=== PATIENT | female | born 1945 | race Caucasian/White ===

== ENCOUNTER 2017-03-19 11:00 | Inpatient (IN) | payer MEDICARE, BC ==
[2017-03-19] MEDS ORDERED: Acetaminophen 325 MG Tab PO PRN (11:50)
[2017-03-19] MEDS ORDERED: Sodium Chloride 0.9% 1,000 ML IV SCH (12:00)
[2017-03-19] MEDS: cefTRIAXone 2 GM Vial IVPUSH SCH (12:36)
[2017-03-19] MEDS: predniSONE 20 MG Tab PO SCH (12:36)
[2017-03-19 12:45] LABS: CHLORIDE,CL 99 mmol/L (98-107); SODIUM,NA 137 mmol/L (136-145)
--- NOTE | 2017-03-19 13:34 | PCM.HP ---
H&P History of Present Illness - General Date of Service: 03/19/17 Admit Problem/Dx: Admission Diagnosis/Problem Admission Diagnosis/Problem Pneumonia Source of Information: Patient History Limitations: Reports: No Limitations - History of Present Illness Initial Comments - Free Text/Narative: Mrs. Paz is a 71 yo female with PMH of only polio who presented for evaluation of 2 weeks of a cough productive of thick yellow sputum. Over the past 24-48 hours, she developed more generalized weakness, malaise, and a subjective fever. She did not check her temperature at home but it was measured at 100.8 in clinic yesterday. She never had any URI symptoms. She did have some chest pain but only with coughing and that actually seems better today. She has not really had any shortness of breath. I had seen her in clinic yesterday and started her on azithromycin after given her a dose of ceftriaxone in clinic. Despite this as well as OTC cares, she does not really feel any better today. Her daughter states that the patient had a "terrible night" and was coughing consistently. It also seemed at times that she was coughing so much that it was hard to catch her breath. In clinic today, her oxygen saturations were in the 86 -87% range; therefore, hospital admission was recommended. She has no history of lung disease with the exception of having polio. - Related Data Allergies/Adverse Reactions: Allergies Allergy/AdvReac Type Severity Reaction Status Date / Time No Known Allergies Allergy Verified 03/19/17 11:31 Past Medical History Gastrointestinal History: Reports: GERD - Past Surgical History HEENT Surgical History: Reports: Tonsillectomy Female Surgical History: Reports: Tubal Ligation Social & Family History - Family History Oncologic: Reports: Other (See Below) (unknown primary) - Tobacco Use Smoking Status *Q: Never Smoker Second Hand Smoke Exposure: No - Caffeine Use Caffeine Use: Reports: Coffee - Alcohol Use Alcohol Use History: No Alcohol Use in Last Twelve Months: No - Recreational Drug Use Recreational Drug Use: No - Living Situation & Occupation Living situation: Reports: , with Family (daughter) Occupation: Retired H&P Review of Systems - Review of Systems: Review Of Systems: See Below General: Reports: Fever, Malaise, Weakness HEENT: Reports: No Symptoms Pulmonary: Reports: Wheezing, Cough. Denies: Shortness of Breath Cardiovascular: Reports: No Symptoms Gastrointestinal: Reports: No Symptoms Genitourinary: Reports: No Symptoms Musculoskeletal: Reports: No Symptoms Skin: Reports: No Symptoms Neurological: Reports: No Symptoms Exam - Exam Exam: See Below - Vital Signs Vital Signs: Last Vital Signs Temp 36.3 C 03/19/17 11:16 Pulse 90 03/19/17 11:16 Resp 22 H 03/19/17 11:16 BP 131/58 L 03/19/17 11:16 Pulse Ox 92 L 03/19/17 12:52 Weight: 82.917 kg - Exam General: Alert, Oriented (but slow to answer questions correctly), Cooperative HEENT: Conjunctiva Clear, Mucosa Moist & [place], Posterior Pharynx Clear, Pupils Equal, Pupils Reactive, TMs Clear Neck: Supple, Trachea Midline. No: Lymphadenopathy, Thyromegaly Lungs: Crackles (RLL), Wheezing (in the upper lung calix bilaterally) Cardiovascular: Regular Rate, Regular Rhythm, Normal S1, Normal S2 GI/Abdominal Exam: Normal Bowel Sounds, Soft, Non-Tender, No Organomegaly, No Distention, No Mass Extremities: Normal Inspection, No Pedal Edema Peripheral Pulses: 2+: Radial (L), Radial (R), Dorsalis Pedis (L), Dorsalis Pedis (R) Skin: Warm, Dry, Intact - Patient Data Lab Results Last 24 hrs: Laboratory Results - last 24 hr 03/19/17 03/19/17 Range/Units 12:05 12:05 WBC 8.1 (4.0-10.0) x10^3/uL RBC 4.91 (4.00-5.50) x10^6/uL Hgb 13.8 (12.0-16.0) g/dL Hct 40.5 (33.0-47.0) % MCV 82.5 (78.0-93.0) fL MCH 28.1 (26.0-32.0) pg MCHC 34.1 (32.0-36.0) g/dL RDW Coeff of Kenneth 14.1 (10.0-15.0) % Plt Count 181 (130-400) x10^3/uL Neut % (Auto) 76.1 (50.0-80.0) % Lymph % (Auto) 15.8 L (25.0-50.0) % [place] % (Auto) 7.6 (2.0-11.0) % Eos % (Auto) 0.4 (0.0-4.0) % Baso % (Auto) 0.1 L (0.2-1.2) % Sodium 137 (136-145) mmol/L Potassium 3.3 L (3.5-5.1) mmol/L Chloride 99 (98-107) mmol/L Carbon Dioxide 29 (21-32) mmol/L BUN 11 (7-18) mg/dL Creatinine 0.9 (0.55-1.02) mg/dL Est Cr Clr Drug Dosing 48.07 mL/min Estimated GFR (MDRD) > 60 Glucose 113 H (74-106) mg/dL Calcium 8.4 L (8.5-10.1) mg/dL C-Reactive Protein 26.4 H (<=0.9) mg/dL Result Diagrams: 03/19/17 12:05 03/19/17 12:05 [place] Results Last 24 hrs: Microbiology 03/19/17 12:45 Anaerobic Blood Culture - Final Blood - Venous - Lab Draw *Q Meaningful Use (ADM) - VTE *Q VTE Criteria *Q: - Stroke *Q Stroke Criteria *Q: - AMI *Q AMI Criteria *Q: - Problem List (1) Community acquired pneumonia SNOMED Code(s): 504159293 ICD Code: J18.9 - PNEUMONIA, UNSPECIFIED ORGANISM Status: Acute Current Visit: Yes Problem Details: - Diagnosis of CAP based on symptoms, crackles on lung exam, and CXR showing RLL infiltrate yesterday. - She likely has not truly failed outpatient therapy but has not been on antibiotics long enough to take effect. - Therefore, will continue ceftriaxone 1 gram dialy and azithromycin 250 mg daily. Anticipate patient will be dismissed home on cefdinir and azithromycin vs. azithromycin monotherapy. - Patient does not meet sepsis criteria. - Labs obtained on admission are within acceptable limits. - Blood cultures pending. - Continuous pulse oximetry with oxygen PRN saturations <88%. (2) Wheezing SNOMED Code(s): 57591639 ICD Code: R06.2 - WHEEZING Status: Acute Current Visit: Yes Problem Details: - Will continue DuoNebs q4 hours since this helped with her symptoms while she was in clinic. - Will also do 5 day prednisone burst as well. - May need to consider outpatient PFT's if she has recurrent wheezing illnesses. Problem List Initiated/Reviewed/Updated: Yes Orders Last 24hrs: Active Orders 24 hr Category Date Time Status Patient Status [ADT] Routine ADT 03/19/17 11:09 Active Notify Provider Vital Signs [RC] ASDIRECTED Care 03/19/17 11:51 Ordered Oxygen Therapy [RC] PRN Care 03/19/17 11:50 Ordered Pulse Oximetry [RC] CONTINUOUS Care 03/19/17 11:50 Ordered RT Aerosol Therapy [RC] ASDIRECTED Care 03/19/17 11:53 Ordered Up With Assistance [RC] ASDIRECTED Care 03/19/17 11:50 Ordered VTE/DVT Education [RC] PER UNIT ROUTINE Care 03/19/17 11:50 Ordered Vital Signs [RC] Q4H Care 03/19/17 11:50 Ordered Regular Diet [DIET] Diet 03/19/17 Lunch Ordered CULTURE BLOOD [BC] Stat Lab 03/19/17 11:49 Ordered CULTURE BLOOD [BC] Stat Lab 03/19/17 11:49 Ordered Acetaminophen [Tylenol] Med 03/19/17 11:50 Ordered 650 mg PO Q4H PRN Albuterol/Ipratropium [DuoNeb 3.0-0.5 MG/3 ML] Med 03/19/17 15:00 Ordered 3 ml NEB Q4HRRT Azithromycin [Zithromax] Med 03/20/17 08:00 Ordered 250 mg PO DAILY Enoxaparin [Lovenox] Med 03/20/17 08:00 Ordered 40 mg SUBCUT DAILY Sodium Chloride 0.9% @ 100 MLS/HR(1000ml) Med 03/19/17 12:00 Ordered Sodium Chloride 0.9% [Normal Saline] 1,000 ml IV ASDIRECTED cefTRIAXone [Rocephin] Med 03/19/17 12:00 Ordered 1 gm IVPUSH Q24H predniSONE Med 03/19/17 12:00 Ordered 40 mg PO WITHBREAKFAST Blood Culture x2 Reflex Set [OM.PC] Stat Oth 03/19/17 11:46 Ordered Resuscitation Status Routine Resus Stat 03/19/17 11:50 Ordered Medication Orders Acetaminophen (Tylenol) 650 mg PO Q4H PRN PRN Reason: Pain (Mild 1-3)/fever Albuterol/Ipratropium (Duoneb 3.0-0.5 Mg/3 Ml) 3 ml NEB Q4HRRT ON [facility] OF [facility] Azithromycin (Zithromax) 250 mg PO DAILY ON [facility] Ceftriaxone Sodium (Rocephin) 2 gm IVPUSH Q24H ON [facility] OF [facility] Last Admin: 03/19/17 12:36 Dose: 2 gm Enoxaparin Sodium (Lovenox) 40 mg SUBCUT DAILY ON [facility] OF [facility] Sodium Chloride (Normal Saline) 1,000 mls @ 100 mls/hr IV ASDIRECTED ON [facility] OF [facility] Last Admin: 03/19/17 12:37 Dose: 100 mls/hr Prednisone (Prednisone) 40 mg PO WITHBREAKFAST ON [facility] OF [facility] Last Admin: 03/19/17 12:36 Dose: 40 mg Assessment/Plan Comment:: 71 yo female admitted with hypoxia secondary to community acquired pneumonia. See details under problems above. She will be treated with ceftriaxone and azithromycin as well as DuoNebs and prednisone. Oxygen PRN. Patient wishes to be full code. Patient meets inpatient criteria due to hypoxia despite outpatient therapy but will also likely spend 2 midnights in the hospital. Lovenox for VTE prophylaxis.
[2017-03-19] MEDS: Albuterol/Ipratropium 3.0-0.5 MG/3 ML Neb Soln NEB SCH ×3 (14:42→22:06)
[2017-03-20] MEDS: Albuterol/Ipratropium 3.0-0.5 MG/3 ML Neb Soln NEB SCH ×6 (03:27→23:08)
[2017-03-20 07:15] LABS: CHLORIDE,CL 105 mmol/L (98-107); SODIUM,NA 142 mmol/L (136-145)
[2017-03-20] MEDS: predniSONE 20 MG Tab PO SCH (08:04)
[2017-03-20] MEDS: Enoxaparin 40 MG/0.4 ML Syringe SUBCUT SCH ×2 (08:04→08:07)
[2017-03-20] MEDS: Azithromycin 250 MG Tab PO SCH (08:04)
--- NOTE | 2017-03-20 10:05 | PCM.PN ---
- General Info Date of Service: 03/20/17 Subjective Update: Patient states she feels "great" this morning. Slept better overnight. Cough persists but is improving. Does believe she had a fever overnight. No chest pain or shortness of breath. She is wondering if she can go home today. Nursing staff are concerned about this as she did require oxygen all night. Patient does still feel weak. - Review of Systems General: Reports: Fever, Weakness HEENT: Reports: No Symptoms Pulmonary: Reports: Cough Cardiovascular: Reports: No Symptoms Gastrointestinal: Reports: No Symptoms Genitourinary: Reports: No Symptoms Musculoskeletal: Reports: No Symptoms Skin: Reports: No Symptoms - Patient Data Vitals - Most Recent: Last Vital Signs Temp 35.8 C 03/20/17 06:00 Pulse 74 03/20/17 06:00 Resp 14 03/20/17 06:00 BP 117/39 L 03/20/17 06:00 Pulse Ox 91 L 03/20/17 09:09 Weight - Most Recent: 82.917 kg I&O - Last 24 Hours: Intake & Output 03/19/17 03/20/17 03/20/17 22:59 06:59 14:59 Intake Total 938 427 420 Output Total 350 750 Balance 588 -323 420 Lab Results Last 24 Hours: Laboratory Results - last 24 hr 03/19/17 03/19/17 03/20/17 Range/Units 12:05 12:05 06:30 WBC 8.1 8.2 (4.0-10.0) x10^3/uL RBC 4.91 4.59 (4.00-5.50) x10^6/uL Hgb 13.8 12.9 (12.0-16.0) g/dL Hct 40.5 38.0 (33.0-47.0) % MCV 82.5 82.8 (78.0-93.0) fL MCH 28.1 28.1 (26.0-32.0) pg MCHC 34.1 33.9 (32.0-36.0) g/dL RDW Coeff of Kenneth 14.1 13.7 (10.0-15.0) % Plt Count 181 204 (130-400) x10^3/uL Neut % (Auto) 76.1 (50.0-80.0) % Lymph % (Auto) 15.8 L (25.0-50.0) % [place] % (Auto) 7.6 (2.0-11.0) % Eos % (Auto) 0.4 (0.0-4.0) % Baso % (Auto) 0.1 L (0.2-1.2) % Add Manual Diff Yes Neutrophils % (Manual) 74 (50-80) % Lymphocytes % (Manual) 23 L (25-50) % Atypical Lymphs % 1 H (0) % Monocytes % (Manual) 2 (2-11) % Platelet Estimate Adequate Sodium 137 (136-145) mmol/L Potassium 3.3 L (3.5-5.1) mmol/L Chloride 99 (98-107) mmol/L Carbon Dioxide 29 (21-32) mmol/L BUN 11 (7-18) mg/dL Creatinine 0.9 (0.55-1.02) mg/dL Est Cr Clr Drug Dosing 48.07 mL/min Estimated GFR (MDRD) > 60 Glucose 113 H (74-106) mg/dL Calcium 8.4 L (8.5-10.1) mg/dL C-Reactive Protein 26.4 H (<=0.9) mg/dL 03/20/17 Range/Units 06:30 WBC (4.0-10.0) x10^3/uL RBC (4.00-5.50) x10^6/uL Hgb (12.0-16.0) g/dL Hct (33.0-47.0) % MCV (78.0-93.0) fL MCH (26.0-32.0) pg MCHC (32.0-36.0) g/dL RDW Coeff of Kenneth (10.0-15.0) % Plt Count (130-400) x10^3/uL Neut % (Auto) (50.0-80.0) % Lymph % (Auto) (25.0-50.0) % [place] % (Auto) (2.0-11.0) % Eos % (Auto) (0.0-4.0) % Baso % (Auto) (0.2-1.2) % Add Manual Diff Neutrophils % (Manual) (50-80) % Lymphocytes % (Manual) (25-50) % Atypical Lymphs % (0) % Monocytes % (Manual) (2-11) % Platelet Estimate Sodium 142 (136-145) mmol/L Potassium 3.2 L (3.5-5.1) mmol/L Chloride 105 (98-107) mmol/L Carbon Dioxide 27 (21-32) mmol/L BUN 9 (7-18) mg/dL Creatinine 0.9 (0.55-1.02) mg/dL Est Cr Clr Drug Dosing 48.07 mL/min Estimated GFR (MDRD) > 60 Glucose 127 H (74-106) mg/dL Calcium 8.7 (8.5-10.1) mg/dL C-Reactive Protein (<=0.9) mg/dL [place] Results Last 24 Hours: Microbiology 03/19/17 12:45 Anaerobic Blood Culture - Final Blood - Venous - Lab Draw Med Orders - Current: Current Medications Acetaminophen (Tylenol) 650 mg PO Q4H PRN PRN Reason: Pain (Mild 1-3)/fever Albuterol/Ipratropium (Duoneb 3.0-0.5 Mg/3 Ml) 3 ml NEB Q4HRRT [facility] Last Admin: 03/20/17 07:02 Dose: 3 ml Azithromycin (Zithromax) 250 mg PO DAILY [facility] Last Admin: 03/20/17 08:04 Dose: 250 mg Ceftriaxone Sodium (Rocephin) 2 gm IVPUSH Q24H [facility] Last Admin: 03/19/17 12:36 Dose: 2 gm Enoxaparin Sodium (Lovenox) 40 mg SUBCUT DAILY [facility] Last Admin: 03/20/17 08:07 Dose: Not Given Sodium Chloride (Normal Saline) 1,000 mls @ 100 mls/hr IV ASDIRECTED [facility] Last Admin: 03/19/17 12:37 Dose: 100 mls/hr Prednisone (Prednisone) 40 mg PO WITHBREAKFAST [facility] Last Admin: 03/20/17 08:04 Dose: 40 mg - Exam General: Alert, Oriented, Cooperative, No Acute Distress HEENT: Mucous Membr. Moist/[place] Neck: Supple, No Thyromegaly. No: Lymphadenopathy Lungs: Clear to Auscultation (otherwise; no wheezing today), Crackles (RLL) Cardiovascular: Regular Rate, Regular Rhythm, No Murmurs GI/Abdominal Exam: Normal Bowel Sounds, Soft, Non-Tender, No Organomegaly, No Distention, No Mass Extremities: Normal Inspection, No Pedal Edema Peripheral Pulses: 2+: Radial (L), Radial (R) Skin: Warm, Dry, Intact - Problem List & Annotations (1) Community acquired pneumonia SNOMED Code(s): 004488930 Code(s): J18.9 - PNEUMONIA, UNSPECIFIED ORGANISM Status: Acute Current Visit: Yes Annotation/Comment:: - Diagnosis of CAP based on symptoms, crackles on lung exam, and CXR showing RLL infiltrate yesterday. - She is improved today but still with some hypoxia. - Continue ceftriaxone 1 gram dialy and azithromycin 250 mg daily. Anticipate patient will be dismissed home on cefdinir and azithromycin vs. azithromycin monotherapy. - Patient does not meet sepsis criteria. - Labs remain within acceptable limits. - Blood cultures pending. - Continuous pulse oximetry with oxygen PRN saturations <88%. (2) Wheezing SNOMED Code(s): 55526286 Code(s): R06.2 - WHEEZING Status: Acute Current Visit: Yes Annotation/ Comment:: - Wheezing is resolved today. - Will change DuoNebs to PRN q4 hours. - Will also do 5 day prednisone burst as well. - May need to consider outpatient PFT's if she has recurrent wheezing illnesses. - Problem List Review Problem List Initiated/Reviewed/Updated: Yes - My Orders Last 24 Hours: My Active Orders 03/19/17 11:09 Patient Status [ADT] Routine 03/19/17 11:46 Blood Culture x2 Reflex Set [OM.PC] Stat 03/19/17 11:50 Oxygen Therapy [RC] 08,20 Pulse Oximetry [RC] 06,10,14,18,22,02 Up With Assistance [RC] ASDIRECTED VTE/DVT Education [RC] .PRN Vital Signs [RC] 06,10,14,18,22,02 Acetaminophen [Tylenol] 650 mg PO Q4H PRN Resuscitation Status Routine 03/19/17 11:51 Notify Provider Vital Signs [RC] .PRN 03/19/17 11:53 RT Aerosol Therapy [RC] 03,07,11,15,19,23 03/19/17 12:00 Sodium Chloride 0.9% [Normal Saline] 1,000 ml IV ASDIRECTED cefTRIAXone [Rocephin] 2 gm IVPUSH Q24H predniSONE 40 mg PO WITHBREAKFAST 03/19/17 12:05 CULTURE BLOOD [BC] Stat 03/19/17 12:45 CULTURE BLOOD [BC] Stat 03/19/17 15:00 Albuterol/Ipratropium [DuoNeb 3.0-0.5 MG/3 ML] 3 ml NEB Q4HRRT 03/19/17 Lunch Regular Diet [DIET] 03/20/17 08:00 Azithromycin [Zithromax] 250 mg PO DAILY Enoxaparin [Lovenox] 40 mg SUBCUT DAILY - Assessment Assessment:: 71 yo female admitted with hypoxia secondary to community acquired pneumonia. Symptoms improving. O2 saturations also improving but patient did require oxygen overnight. - Plan Plan:: See details under problems above. Continue ceftriaxone and azithromycin as well as DuoNebs and prednisone. Oxygen PRN. Patient wishes to be full code. Patient will remain under acute status today. I do not think she is ready to go home but I do anticipate dismissal home tomorrow. Lovenox for VTE prophylaxis.
[2017-03-20] MEDS: cefTRIAXone 2 GM Vial IVPUSH SCH (12:29)
[2017-03-20] MEDS ORDERED: Calcium Carbonate 750 MG Tab.Chew PO PRN (22:03)
[2017-03-21] MEDS: Albuterol/Ipratropium 3.0-0.5 MG/3 ML Neb Soln NEB SCH ×2 (03:33→07:08)
[2017-03-21 06:15] VITALS: BP 144/100
--- NOTE | 2017-03-21 08:33 | PCM.DCSUM1 ---
Discharge Summary - Hospital Course Brief History: Mrs. Paz is a 71 yo female who was admitted with community acquired pneumonia after presenting to clinic for 24 hours of fever in the setting of 2 weeks of a productive cough. - Discharge Data Discharge Date: 03/21/17 Discharge Disposition: Home, Self-Care 01 Condition: Good - Discharge Diagnosis/Problem(s) (1) Community acquired pneumonia SNOMED Code(s): 633731523 ICD Code: J18.9 - PNEUMONIA, UNSPECIFIED ORGANISM Status: Acute Current Visit: Yes Problem Details: Diagnosis of pneumonia based on symptoms, crackles on lung exam, and chest x-ray findings. She was admitted due to failure of improvement on outpatient antibiotics and worsened hypoxia at a 24 hour recheck appointment. She did require oxygen initially in her hospital stay but had gone 24 hours without it before dismissal. Blood cultures negative. She was treated with ceftriaxone and azithromycin and will dismiss home on cefdinir and azithromycin. (2) Wheezing SNOMED Code(s): 92614660 ICD Code: R06.2 - WHEEZING Status: Acute Current Visit: Yes Problem Details: Due to wheezing on exam, she was also treated with DuoNebs and prednisone with good relief in symptoms. May need to consider outpatient lung function testing if she has recurrent wheezing illnesses. - Patient Summary/Data Operative Procedure(s) Performed: none Complications: none Consults: none Labs Pending at D/C: none Recommended Follow-up Testing/Procedures: none Planned Operative Procedure(s) after DC: none Hospital Course: Symptoms improved as did her oxygen requirements. See details under problems above. She will be dismissed home today in stable condition. - Patient Instructions Diet: Usual Diet as Tolerated Activity: As Tolerated - Discharge Plan Prescriptions/Med Rec: Albuterol/Ipratropium [DuoNeb 3.0-0.5 MG/3 ML] 3 ml NEB Q4H PRN #25 neb PRN Reason: shortness of breath, cough Cefdinir 300 mg PO BID #8 capsule Prednisone [IJD: predniSONE] 40 mg PO WITHBREAKFAST #4 tablet Home Medications: Home Meds Albuterol/Ipratropium [DuoNeb 3.0-0.5 MG/3 ML] 3 ml NEB Q4H PRN #25 neb [Rx] Azithromycin [Zithromax] 250 mg PO DAILY tablet 03/21/17 [Rx] Cefdinir 300 mg PO BID #8 capsule 03/21/17 [Rx] Prednisone [IJD: predniSONE] 40 mg PO WITHBREAKFAST #4 tablet 03/21/17 [Rx] - Discharge Summary/Plan Comment DC Time >30 min.: No - General Info Date of Service: 03/21/17 Subjective Update: Feels well this am. Ready to d/c home. Still with some cough but improving. Was able to walk around nurses station x 2 last evening without any trouble. - Review of Systems General: Reports: No Symptoms HEENT: Reports: No Symptoms Pulmonary: Reports: Cough. Denies: Shortness of Breath, Wheezing Cardiovascular: Reports: No Symptoms Gastrointestinal: Reports: No Symptoms Genitourinary: Reports: No Symptoms Musculoskeletal: Reports: No Symptoms Skin: Reports: No Symptoms - Patient Data Vitals - Most Recent: Last Vital Signs Temp 36.9 C 03/21/17 06:00 Pulse 79 03/21/17 06:00 Resp 22 H 03/21/17 06:00 BP 144/100 H 03/21/17 06:00 Pulse Ox 95 03/21/17 07:21 Weight - Most Recent: 82.917 kg I&O - Last 24 hours: Intake & Output 03/20/17 03/21/17 03/21/17 22:59 06:59 14:59 Intake Total 1160 240 Output Total 500 400 Balance 660 -400 240 CHRIS Results - Last 24 hrs: Microbiology 03/19/17 12:45 Aerobic Blood Culture - Preliminary Blood - Venous - Lab Draw NO GROWTH AFTER 1 DAY Anaerobic Blood Culture - Final 03/19/17 12:05 Aerobic Blood Culture - Preliminary Blood - Venous NO GROWTH AFTER 1 DAY Anaerobic Blood Culture - Preliminary NO GROWTH AFTER 1 DAY Med Orders - Current: Current Medications Acetaminophen (Tylenol) 650 mg PO Q4H PRN PRN Reason: Pain (Mild 1-3)/fever Albuterol/Ipratropium (Duoneb 3.0-0.5 Mg/3 Ml) 3 ml NEB Q4HRRT [facility] Last Admin: 03/21/17 07:08 Dose: 3 ml Azithromycin (Zithromax) 250 mg PO DAILY [facility] Last Admin: 03/20/17 08:04 Dose: 250 mg Calcium Carbonate/Glycine (Tums Extra Strength) 750 mg PO Q2H PRN PRN Reason: Dyspepsia Last Admin: 03/20/17 23:08 Dose: 750 mg Ceftriaxone Sodium (Rocephin) 2 gm IVPUSH Q24H [facility] Last Admin: 03/20/17 12:29 Dose: 2 gm Enoxaparin Sodium (Lovenox) 40 mg SUBCUT DAILY [facility] Last Admin: 03/20/17 08:07 Dose: Not Given Sodium Chloride (Normal Saline) 1,000 mls @ 100 mls/hr IV ASDIRECTED [facility] Last Admin: 03/19/17 12:37 Dose: 100 mls/hr Prednisone (Prednisone) 40 mg PO WITHBREAKFAST [facility] Last Admin: 03/20/17 08:04 Dose: 40 mg - Exam General: Reports: Alert, Cooperative, No Acute Distress HEENT: Reports: Mucous Membr. Moist/[place] Neck: Reports: Supple, Trachea Midline, No Thyromegaly. Denies: Lymphadenopathy Lungs: Reports: Clear to Auscultation (otherwise), Crackles (RLL) Cardiovascular: Reports: Regular Rate, Regular Rhythm, No Murmurs GI/Abdominal Exam: Normal Bowel Sounds, Soft, Non-Tender, No Organomegaly, No Distention, No Mass Extremities: Normal Inspection, No Pedal Edema Skin: Reports: Warm, Dry, Intact *Q Meaningful Use (DIS) - VTE *Q VTE Criteria *Q: - Stroke *Q Stroke Criteria *Q: - AMI *Q AMI Criteria *Q:
[2017-03-21] MEDS: Azithromycin 250 MG Tab PO SCH (08:53)
[2017-03-21] MEDS: predniSONE 20 MG Tab PO SCH (08:53)
[2017-03-21] MEDS: Enoxaparin 40 MG/0.4 ML Syringe SUBCUT SCH (08:56)
== END 2017-03-21 09:50 | disposition home or self-care (01) | DRG 195 ==
LOC: VM.MS 11:09
PROVIDERS: ADMIT Family Medicine; ATTEND Family Medicine
DX: J18.9 Pneumonia, unspecified organism (principal); R09.02 Hypoxemia; R06.2 Wheezing; K21.9 Gastro-esophageal reflux disease without esophagitis; Z79.899 Other long term (current) drug therapy
CPT/HCPCS: 36415; 80048; 85025; 86140; 87040; 94640-76; 94760; A9270-GY; J0696; J1650; J7030